=== PATIENT | female | born 1995 | race Asian ===

== ENCOUNTER 2019-03-30 15:19 | Emergency (ER) | payer OTHER ==
[~2019-03-30] VITALS: Ht 157.5 cm; Wt 57.6 kg
[2019-03-30 15:20] VITALS: Ht 157.5 cm; Wt 57.6 kg
[2019-03-30 18:59] VITALS: BP 110/67
== END 2019-03-30 18:59 | disposition home or self-care (01) ==
LOC: ED 15:19
DX: S16.1XXA Strain of muscle, fascia and tendon at neck level, initial encounter (principal); M25.511 Pain in right shoulder; M25.512 Pain in left shoulder; R11.0 Nausea; Z13.89 Encounter for screening for other disorder; V43.52XA Car driver injured in collision with other type car in traffic accident, initial encounter; Y93.I9 Activity, other involving external motion; Y92.488 Other paved roadways as the place of occurrence of the external cause; Y99.8 Other external cause status